=== PATIENT | female | born 1985 | race Caucasian/White ===

== ENCOUNTER 2018-04-22 11:46 | Emergency (ER) | payer MEDICAID ==
--- NOTE | 2018-04-22 12:29 | ED Physician Chart ---
ED Chief Complaint/HPI - Patient Information Date Seen:: 04/22/18 Time Seen:: 11:58 Chief Complaint:: INFECTED INSECT BITE History of Present Illness:: THIS IS A 32 YO FEMALE WHO IS CONCERNED ABOUT AN INFECTED BITE AREA OF THE RIGHT SIDE OF THE TRUNK MIDAXILLARY LINE. SHE DENIES, COUGH, FEVER OR ANY OTHER INFECTED SITES. Allergies:: Allergies Allergy/AdvReac Type Severity Reaction Status Date / Time No Known Allergies Allergy Verified 04/22/18 11:53 Vitals:: Vital Signs - 8 hr 04/22/18 04/22/18 11:55 12:20 Temp 98.8 F HR 80 76 RR 16 16 BP 113/76 110/72 O2 Sat % 100 98 Historian:: Patient Review:: Nurse's Note Reviewed ED Review of Systems - Review of Systems Skin: Skin lesions (RIGHT TRUNK INSECT BITE AREA) ED Past Medical History - Past Medical History Obtainable: Yes Past Medical History: No significant medical hx Family History: None Social History: Non Smoker, No Alcohol, No Drug Use, Employed Family Medical History - Family Member Mother History Unknown: Yes Ethnicity: Living Status: Still Living Hx Family Cancer: No Hx Family Coronary Artery Disease: No Hx Family Congestive Heart Failure: No Hx Family Hypertension: Yes Hx Family Stroke: No Hx Family Diabetes: No Hx Family Seizures: No Hx Family Dementia: No Hx Family AIDS: No Hx Family HIV: No Hx Family COPD: No Hx Family Hepatitis: No Hx Family Psychiatric Problems: No Hx Family Tuberculosis: No ED Physical Exam - Physical Examination General/Constitutional: Awake, Well-developed, well-nourished, Alert, No distress, GCS 15, Non-toxic appearing, Ambulatory Head: Atraumatic Eyes: Lids, conjuctiva normal, PERRL, EOMI Skin: Nl inspection, No rash, No skin lesions (RIGHT MIDAXILLARY LINE ON THE TRUNK THERE IS A HEALING INSECT LIKE BITE.), No ecchymosis, Well hydrated, No lymphadenopathy ENMT: External ears, nose nl, Nasal exam nl, Lips, teeth, gums nl Neck: Nontender, Full ROM w/o pain, No JVD, No nuchal rigidity, No bruit, No mass, No stridor Respiratory: Nl effort/Exclusion, Clear to Auscultation, No Wheeze/Rhonchi/Rales Cardio Vascular: RRR, No murmur, gallop, rubs, NL S1 S2 GI: No tenderness/rebounding/guarding, No organomegaly, No hernia, Normal BS's, Nondistended, No mass/bruits, No McBurney tenderness : No CVA tenderness Extremities: No tenderness or effusion, Full ROM, normal strength in all extremities, No edema, Normal digits & nails Neuro/Psych: Alert/oriented, DTR's symmetric, Normal sensory exam, Normal motor strength, Judgement/insight normal, Mood normal, Normal gait, No focal deficits Misc: Normal back, No paraspinal tenderness ED Assessment - Assessment General Assessment: INFECTED INSECT BITE ED Septic Shock - . Is Septic Shock (SBP<90, OR Lactate>4 mmol\L) present?: No - <6hrs of presentation: Vital Signs: Vital Signs - 8 hr 04/22/18 04/22/18 11:55 12:20 Temp 98.8 F HR 80 76 RR 16 16 BP 113/76 110/72 O2 Sat % 100 98 ED Reassessment (Disposition) - Reassessment Reassessment Condition:: Unchanged - Diagnosis Diagnosis:: INFECTED INSECT BITE - Aftercare/Follow up Instructions Aftercare/Follow-Up Instructions:: Counseled pt regarding lab results/diagnosis & need follow up, Refer to Discharge Instructions, Counseled pt & family regarding lab results/diagnosis & need follow up Medication Prescribed:: KENALOG CREAM 0.1% - Patient Disposition Discharge/Transfer:: Home Condition at Disposition:: Unchanged
== END 2018-04-22 12:25 | disposition home or self-care (01) ==
LOC: ER 11:46
DX: S40.861A Insect bite (nonvenomous) of right upper arm, initial encounter (principal); L08.9 Local infection of the skin and subcutaneous tissue, unspecified; W57.XXXA Bitten or stung by nonvenomous insect and other nonvenomous arthropods, initial encounter; Y93.89 Activity, other specified; Y92.89 Other specified places as the place of occurrence of the external cause; Y99.8 Other external cause status
CPT/HCPCS: Z7502